=== PATIENT | male | born 1960 | race Caucasian/White ===

== ENCOUNTER → 2024-02-22 | Outpatient (REF) | payer MEDICARE ==
[~2024-02-22] MED LIST: HYDROCHLOROTHIA25 MG PO; PRINIVIL20 MG PO
== END ==
LOC: DX 10:02
PROVIDERS: ATTEND Internal Medicine Infectious Disease
DX: A31.0 Pulmonary mycobacterial infection (principal)
CPT/HCPCS: 36569; 71045

== ENCOUNTER 2024-03-12 19:17 | Emergency (ER) | payer MEDICARE ==
[~2024-03-12] VITALS: Ht 167.6 cm; Wt 86.6 kg
[2024-03-12 20:13] VITALS: PULSE 109; RESP 24; TEMP 98.7; O2SAT 97
== END 2024-03-12 20:32 | disposition home or self-care (01) ==
LOC: ER 19:22
DX: Z45.2 Encounter for adjustment and management of vascular access device (principal)
CPT/HCPCS: 99282